=== PATIENT | male | born 1990 | race Caucasian/White ===

== ENCOUNTER 2018-01-16 14:11 | Emergency (ER) | payer OTHER ==
[~2018-01-16] VITALS: Ht 167.6 cm; Wt 78.0 kg
[2018-01-16 14:16] VITALS: BP 143/83
[2018-01-16 14:20] VITALS: BP 143/83
[2018-01-16] MEDS ORDERED: MECLIZINE 25 MG TAB PO ONE (14:25)
== END 2018-01-16 14:37 | disposition home or self-care (01) ==
LOC: MED 14:11
DX: H66.91 Otitis media, unspecified, right ear (principal)
CPT/HCPCS: 99283; J8597